=== PATIENT | female | born 1990 | race Two or more races ===

== ENCOUNTER 2025-04-24 00:39 | Emergency (ER) | payer MEDICAID, SELFPAY ==
[2025-04-24 00:43] VITALS: BMI 33.8
--- NOTE | 2025-04-24 00:44 | EKG_ITS ---
[facility] Test Date: 2025-04-24 Pat Name: JAVIER ZENDEJAS Department: Room: - Gender: Female Control Inspector: : 1990 Requested By: ED Temporary Provider Order Number: [id number] Reading MD: ED Temporary Provider Measurements Intervals Roggen Rate: 79 P: 40 MS: 145 QRS: 6 QRSD: 89 T: 13 QT: 357 QTc: 411 Interpretive Statements SINUS RHYTHM WITH SINUS ARRHYTHMIA No previous ECG available for comparison /[id number]/S0/[id number].pdf
--- NOTE | 2025-04-24 00:46 | XR_ITS ---
EXAMINATION: AP chest single view TECHNIQUE: AP portable upright chest single view Date and time: April 24, 2025, 0118 hours, comparison June 06, 2012 INDICATIONS: Chest pain dizziness today. FINDINGS: Normal heart size No pneumonia or pulmonary edema. Osseous structures are intact IMPRESSION: No active disease
[2025-04-24 00:49] VITALS: BP 108/69; PULSE 81; RESP 16; TEMP 37; O2SAT 100
[2025-04-24 01:24] LABS: Basophils # (Auto) 0.0 Thou/mm3 (0.0-0.2); Basophils % (Auto) 0 % (0-2.5); Eosinophils # (Auto) 0.1 Thou/mm3 (0.0-0.5); Eosinophils % (Auto) 1 % (0-10); Hematocrit 35.2 % (36.0-46.0); Hemoglobin 12.2 g/dL (12.0-16.0); Immature Granulocytes Auto 0.02 Thou/mm3 (0.00-0.00); Lymphocytes # (Auto) 3.2 Thou/mm3 (1.0-4.8); Lymphocytes % (Auto) 43 % (10-50); Mean Corpuscular HGB Conc 34.7 g/dl (31.0-37.0); Mean Corpuscular Hemoglobin 29.5 pg (25.0-35.0); Mean Corpuscular Volume 85 fL (80-100); Monocytes # (Auto) 0.5 Thou/mm3 (0.0-0.8); Monocytes % (Auto) 7 % (0-12); Neutrophils # (Auto) 3.6 Thou/mm3 (1.8-7.7); Neutrophils % (Auto) 48 % (37-80); Nucleated Red Blood Cell # 0.00 Thou/mm3 (0.00-0.00); Nucleated Red Blood Cell % 0 /100 WBC (0); Platelet Count 230 Thou/mm3 (140-440); RDW Standard Deviation 37.5 fL (36.4-46.3); Red Blood Count 4.14 Miln/mm3 (4.00-5.20); White Blood Count 7.4 Thou/mm3 (3.6-11.0)
[2025-04-24 01:42] LABS: B-Type Natriuretic Peptide < 20 pg/mL (0-100)
[2025-04-24 01:44] LABS: Alanine Aminotransferase 19 U/L (10-49); Albumin, Serum 4.6 gm/dL (3.5-5.0); Albumin/Globulin Ratio 2.2 (1.2-2.2); Alkaline Phosphatase 98 U/L (46-116); Anion Gap 11 (7-16); Aspartate Amino Transferase 21 U/L (0-34); BUN/Creatinine Ratio 14 Ratio (12-20); Bilirubin,Total 0.4 mg/dL (0.3-1.2); Blood Urea Nitrogen 13 mg/dL (9-23); Calcium 9.3 mg/dL (8.3-10.6); Calcium (Corrected) 9.3 mg/dL (8.5-10.1); Carbon Dioxide 24.0 mMol/L (20.0-31.0); Chloride 106 mMol/L (98-107); Creatinine (Component) 0.9 mg/dL (0.6-1.3); Estimated Creatinine Clearance 90.1 mL/min (>60); Globulin 2.1 gm/dL (2.3-3.5); Glucose 114 mg/dL (74-106); LDH (Lactate Dehydrogenase) 209 U/L (120-246); Magnesium 1.9 mg/dL (1.6-2.6); Osmolality,Calculated 282 (275-295); Potassium 3.6 mMol/L (3.4-5.1); Sodium 141 mMol/L (136-145); Total Protein 6.7 gm/dL (5.7-8.2); Troponin I < 0.002 ng/mL (0.0-0.045); eGFR > 60 See Note
--- NOTE | 2025-04-24 02:35 | EDNOTE_ITS ---
ED Chest Pain RME/HPI General Chief Complaint: Dizziness Stated Complaint: DIZZINESS Time Seen by Provider: 04/24/25 00:53 Arrival date/time: 04/24/25 00:39 RME / HPI RME / HPI narrative: CC: Chest Pain Patient is a 34 year old female with no significant past medical history who presented to the emergency room via EMS with chief complain of chest pain. Chest pain started while at rest while laying in bed that is describe as a chest tightness. Chest tightness last about 20 minutes and had resolved by the time patient arrived to ER. Never has happened before. Pain did not radiate. Denied fever or chills at home. Denied history of anxiety or depression. Gestation diabetes that resolved on upon delivery. No family history of MO, father had a stroke at 50. No shortness of breath. No epigastric pain. No history of GERD. Dinner at 6 PM and went to bed at midnight. Related Data Home Medications ?Medication ?Instructions ?Recorded ?Confirmed No Known Home Medications 07/09/2112/09 Allergies Allergy/AdvReac Type Severity Reaction Status Date / Time No Known Allergies Allergy Verified 04/24/25 00:42 Review of Systems Review of Systems Narrative Review of Systems: General appearance: NO weight change, NO fatigue, NO weakness, NO fever, NO chills, NO night sweats, No cough Skin: NO rash, NO itching, NO sores, NO moles HEENT: NO Trauma, NO nausea, NO vomiting, NO visual changes, NO blurry vision, NO double vision, NO tinnitus, NO vertigo, NO ear discharge, NO rhinorrhea, NO stuffiness, NO sneezing, NO allergy, NO epistaxis. NO Hoarseness, NO sore throat, NO swollen neck. Cardiac: yes, chest pain/tightness, NO Palpitations, NO dyspnea on exertion, NO orthopnea, NO paroxysmal nocturnal dyspnea, NO edema Respiratory: NO Shortness of Breath, NO Wheezing, NO Cough, NO Sputum, NO hemoptysis GI:NO appetite, NO nausea, NO vomiting, NO dysphagia, NO changes in bowel frequency, NO stool color, NO diarrhea, NO constipation, NO hemetemesis, NO hemorrhoids, NO melena, NO hematechezia, NO abdominal pain, NO jaundice Renal: NO frequency, NO hesitancy, NO urgency, NO hematuria, NO nocturia, NO incontinence MSK: NO muscle weakness, NO gout, NO arthritis, NO muscle stiffness Neuro: NO headaches, NO tremors, NO weakness, NO paralysis, NO seizures, NO loss of consciousness, NO numbness. Hem: NO anemia, NO easy bruising/bleeding, NO petechiae, NO purpura Endo: NO heat/cold intolerance, NO excessive sweating, NO polyuria, NO polydipsia, NO polyphagia, NO thyroid problems, NO diabetes Pysch: NO mood, NO anxiety, NO depression Course Quality Measures none Orders Category Date Time Status EKG (ED ONLY) *Do not use* NOW Care 04/24/25 00:44 Active EKG (ED Only) Stat Exams 04/24/25 00:44 Draft XR chest 1V portable Stat Exams 04/24/25 00:46 Taken Alcohol, Urine Stat Lab 04/24/25 02:42 Completed B-Type Natriuretic Peptide Stat Lab 04/24/25 01:06 Completed CBC Stat Lab 04/24/25 01:06 Completed Comprehensive Metabolic Panel Stat Lab 04/24/25 01:06 Completed Drug Screen,Urine Stat Lab 04/24/25 02:42 Completed HCG Qualitative,Urine Stat Lab 04/24/25 02:42 Completed LDH (Lactate Dehydrogenase) Stat Lab 04/24/25 01:06 Completed Magnesium Stat Lab 04/24/25 01:06 Completed TSH [Thyroid Stimulating Hormone] Stat Lab 04/24/25 01:06 Completed Troponin I Stat Lab 04/24/25 01:06 Completed Troponin I Stat Lab 04/24/25 02:58 Completed Urinalysis, C/S if Indicated Stat Lab 04/24/25 02:42 Completed Vital Signs Vital signs: Vital Signs Temperature 98.6 F 04/24/25 00:49 Pulse Rate 81 04/24/25 00:49 Respiratory Rate 16 04/24/25 00:49 Blood Pressure 108/69 04/24/25 00:49 Pulse Oximetry (%) 100 04/24/25 00:49 Oxygen Delivery Method Room Air 04/24/25 00:49 Chest Pain Patient data External records reviewed:: [facility] previous records Clinical information provided by:: patient Social determinants that could affect healthcare access:: none Patient has the following chronic illnesses:: NOne How is presenting disease/condition affected by chronic disease/condition?: no chronic disease Evaluation data The following diagnostics were reviewed and interpreted by me:: lab results and radiology exam(s) Lab and/or radiology exams considered but not ordered:: none Interpretation Summary: Patient has no past medical history who presented to the emergency room with chief complain of chest pain, likely atypical chest pain. EKG NO ST elevation. Troponin negative X 2. Chest x-ray no acute process. CBC no leukocytosis. UA negative. Utox negative. #Atypical Chest Pain. Medications / Prescriptions Medications or Prescriptions considered but not ordered:: None Medication administrations:: None Consultations Consultation(s) initiated? (list below): No Diagnosis Chest Pain Differential Diagnosis: fracture of rib, pneumothorax, atypical chest pain, st elevation myocardial infarction and biliary colic Most likely diagnosis given after review of the tests above:: Patient has no past medical history who presented to the emergency room with chief complain of chest pain, likely atypical chest pain. EKG NO ST elevation. Troponin negative X 2. Chest x-ray no acute process. CBC no leukocytosis. UA negative. Utox negative. No history of GERD. Denied acid reflux/buring sensation. No large meal prior to going to sleep. #Atypical Chest Pain. Admission Indicated Admission indicated?: not indicated Admission Request Was there a request for admission?: No Admission Attestation Admission request attestation: No acute changes and stable vitals Disposition Plan Disposition Plan: Discharge Discharge Attestation Discharge Attestation: The patient and all family members were given an opportunity to ask questions and understood the discharge instructions. Discharge instructions specifically effects, indications for sooner follow up or return to the emergency department, and the expected course of current diagnosis. Patient condition: Stable Discharge Plan Plan Patient Disposition: HOME (Self Care) Patient condition on transfer: Stable Health Concerns: Instructions: -You experienced atypical chest pain likely non-cardiac related with normal EKG. X-ray was negative for pneumonia or any fractured ribs. -Please follow up with your primary care provider and have a referral made to a cleaner operator. Recommended to you have a cardiac work up for chest pain with stress test and holter monitor as outpatient. -Please follow up with your primary care provider within one week of discharge -If your symptoms worsen,please seek immediate medical attention and return to your nearest emergency room -If you do not have a primary care provider, you may follow up at the [facility] at [facility] [address], [place] [address], Prescriptions/Referrals Prescriptions/Med Rec: No Action No Known Home Medications Referrals: Keenan Elizondo MD [Primary Care Provider, Family Practice] - In 1 week Problem List Clinical Impression: Chest pain, atypical Patient/Caregiver Discharge Instructions Education Materials: ED Chest Pain, Noncardiac Print Language: Upper Sorbian Stand Alone Forms: Eva Award Info., Patient Portal Info Letter
[2025-04-24 02:50] LABS: Thyroid Stimulating Hormone 3.48 uIU/mL (0.55-4.78)
[2025-04-24 02:58] LABS: Collection Type, Urine Clean Catch
[2025-04-24 03:09] LABS: Bilirubin,Urine Negative (Negative); Blood,Urine Negative (Negative); Clarity,Urine Clear (Clear/Hazy); Color,Urine Lt-Yellow (Lt Yel-Yel); Culture Indicated,Urine Not Indicated; Glucose, Urine Negative (Negative); Ketones,Urine 1+ (Negative); Leukocyte Esterase,Urine Negative (Negative); Nitrite,Urine Negative (Negative); PH,Urine 6.0 (5.0-7.0); Protein,Urine Negative (Neg - Trace); RBC,Urine 7 /hpf (0-3); Specific Gravity,Urine 1.022 (1.001-1.035); Squamous Epithelial Cell,Urine 2 /hpf (0-5); Urobilinogen,Urine Negative mg/dL (0.0-1.0); WBC,Urine 1 /hpf (0-5)
[2025-04-24 03:22] LABS: Alcohol, Urine Negative (Negative); Amphetamine/Methamp Scrn,U Negative (Negative); Barbiturate Screen,Urine Negative (Negative); Benzodiazepines Screen,Urine Negative (Negative); Benzoylecgonine Screen, Ur Negative (Negative); Fentanyl Screen,Urine Negative (Negative); Opiate Screen,Urine Negative (Negative); THC Screen,Urine Negative (Negative)
[2025-04-24 03:24] LABS: HCG Qualitative,Urine Negative
[2025-04-24 03:26] LABS: Troponin I < 0.002 ng/mL (0.0-0.045)
[2025-04-24 03:59] VITALS: BP 104/88; PULSE 83; RESP 16; O2SAT 99
== END 2025-04-24 04:00 | disposition home or self-care (01) ==
PROVIDERS: Emergency Provider Emergency Medicine; PCP Family Medicine
DX: R07.89 Other chest pain (principal)
CPT/HCPCS: 36415; 71045; 80053; 80307; 80320; 81001; 81025; 83615; 83735; 83880; 84443; 84484; 85025; 93005; 99283; G0480